=== PATIENT | male | born 1960 | race Caucasian/White ===

== ENCOUNTER → 2022-10-05 | Outpatient (CLI) | payer MEDICAID, SELFPAY ==
--- NOTE | 2022-10-05 17:31 | RAD_ITS ---
STUDY: X-RAY - LUMBAR SPINE REASON FOR EXAM: Male, 62 years old. Lower back pain. History of fall several years ago. TECHNIQUE: 3 view(s) of the lumbar spine were obtained. COMPARISON: None FINDINGS: Normal lumbar lordosis. There is no substantial scoliosis. There is a normal alignment of the vertebrae. There is multilevel endplate spondylosis of the lumbar vertebrae. Normal disc space heights. There is no evidence of acute fracture or loss of vertebral axial height. There is evidence of surgical repair of the right acetabular region. The soft tissue structures are unremarkable. RAD/Lumbar Spine 2 or 3 Views IMPRESSION: Mild degenerative changes of the lumbar spine without acute abnormality. Electronically Signed: Leroy Tavares DO at 22:49 EST ,
--- NOTE | 2022-10-05 17:34 | RAD_ITS ---
STUDY: X-RAY - PELVIS AND RIGHT HIP REASON FOR EXAM: Male, 62 years old. Previous hip surgery. Right hip pain. TECHNIQUE: 3 views of the pelvis and hip. COMPARISON: None. FINDINGS: There is a non-specific bowel gas pattern. Normal visualized soft tissue structures. Normal bilateral iliac wings, sacroiliac joints and visualized sacrum. Normal bilateral superior and inferior pubic rami. Normal pubic symphysis. Normal bilateral ischial tuberosities. Normal visualized right femoral head. There is evidence of remote surgical repair of the right acetabulum. Normal right hip joint. RAD/HIP, UNI W/ Pelvis 2-3 Views IMPRESSION: Evidence of remote surgical repair of the right acetabulum. There is no acute abnormality. Electronically Signed: Leroy Tavares DO at 22:49 EST ,
[2022-10-05 19:20] LABS: Amphetamine Urine VISTA NEGATIVE (<1000 ng/mL); Barbiturate Urine VISTA NEGATIVE (< 200 ng/mL); Benzodiazepine Urine VISTA NEGATIVE (< 200 ng/mL); Cocaine Urine VISTA NEGATIVE (< 300 ng/mL); Ecstacy Urine VISTA NEGATIVE (< 500 ng/mL); Methadone Urine VISTA NEGATIVE (< 300 ng/mL); PCP Urine VISTA NEGATIVE (< 25 ng/mL); THC Urine VISTA POSITIVE (< 50 ng/mL); Vista UDS pH Range 7
== END | disposition home or self-care (01) ==
PROVIDERS: Visit Provider Anesthesiology Pain Medicine
DX: F11.20 Opioid dependence, uncomplicated (principal); M51.36 Other intervertebral disc degeneration, lumbar region; M25.551 Pain in right hip
CPT/HCPCS: 72100; 73502; 80307

== ENCOUNTER 2022-12-10 15:30 | Outpatient (RCR) | payer MEDICAID, SELFPAY ==
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
--- NOTE | 2023-04-27 10:14 | HP.PTDCSUM ---
It has been my pleasure to treat HILARIA HEWITT referred by Dr. Grover Stroud MD, with the diagnosis of BACK PAIN AND LEG PAIN for a total of 9 visit(s). Discharge Date: Please see the following information for a summary of their discharge status. Subjective: Patient doing well with Aquatic. Doing better overall ..walking better Right Back Pain Intensity (Out of 10): 5 Right Hip Pain Intensity (Out of 10): 5 % Improvement: 40 Objective/Function: POSTURE: mild forward posture. GAIT: reciprocal pattern. LUMBAR ROM: flexion min loss ,extension mod/severe ,min loss side glides. MMT: quads 4-/5 ,hip flexion 4-/5 ,ankle 5/5 ,hamstrings 4/5. FLEXABLITY: min loss Goal 1:: I with HEP for Aquatic Therapy program Goal 2:: Patient to demonstrate 50% improvement with improved function and less pain. Goal 3:: Patient improve peak force right leg by 10 to improve function and gait Goal 4:: Patient to improve lumbar ROM for function of recovery to tie shoes Goal 5:: Patient to improve back oswestry score by 5 points to improve function. Plan: RTD If there are questions or concerns regarding this patient's physical therapy, please feel free to call me at [phone]. Thank you for the referral of this patient. Sincerely, Brendon Salvador PT, Cert MDT, OCS Balance/Gait/Functional tests - Balance/Special Test Scores Oswestry Low Back Score: 10
== END 2022-12-10 19:00 | disposition home or self-care (01) ==
LOC: PT 15:30
PROVIDERS: Referring Provider Anesthesiology Pain Medicine; Visit Provider Anesthesiology Pain Medicine
DX: M54.9 Dorsalgia, unspecified (principal); M79.604 Pain in right leg
CPT/HCPCS: 97113; 97162; 97530

== ENCOUNTER → 2025-05-01 | Outpatient (CLI) | payer MEDICARE, MEDICAID, SELFPAY ==
--- NOTE | 2025-05-01 13:20 | RAD_ITS ---
PROCEDURE: HIP, UNI W/ PELVIS 2-3 VIEWS 05/01/2025 REASON FOR EXAM: RIGHT HIP PAIN TECHNIQUE: (3) views of the pelvis and right hip COMPARISON: 10/05/2022. FINDINGS: Unremarkable metallic hardware of the right acetabulum. Mild osteopenia of the visualized bones. Degenerative joint disease. No fracture or dislocation is seen. No lytic or blastic bone lesion is noted. RAD/HIP, UNI W/ Pelvis 2-3 Views IMPRESSION: No radiographic evidence of an acute bone abnormality. Reading [facility]
--- NOTE | 2025-05-01 13:20 | RAD_ITS ---
PROCEDURE: LUMBAR SPINE 2 OR 3 VIEWS 05/01/2025 REASON FOR EXAM: LUMBAR RADICULOPATHY TECHNIQUE: 2 view(s) of the lumbar spine COMPARISON: None. FINDINGS: Mild degenerative levoscoliosis apex at L3.sis apex at L3. There are diffuse spondylotic changes. Findings are demonstrated to by diffuse disc space narrowing, osteophyte formation and degenerative endplate sclerosis. There is diffuse facet joint arthropathy with secondary bilateral neural foramina narrowing. No fracture or dislocation is seen. No aggressive lytic or blastic bony lesion is noted. IMPRESSSPONDYLOSIS. NONE.: Spondylosis. Reading Location: [facility]
[2025-05-01 15:07] LABS: ALB/GLOB Ratio 1.2 RATIO (0.9-2.4); AST(SGOT) 57 U/L (<=37); Alanine Aminotransfer ALT/SGPT 82 U/L (<=46); Albumin, Serum 4.3 g/dL (3.4-4.8); Alkaline Phosphatase 117 U/L (40-129); Anion Gap 11 (5-15); BUN 17 mg/dL (4-19); BUN/Creat Ratio 11.4 RATIO (10-20); Calcium,Total 9.1 mg/dL (7.6-11.0); Carbon Dioxide 23.8 mmol/L (21.0-32.0); Chloride 106 mmol/L (98-108); Creatinine, Serum 1.47 mg/dL (0.70-1.20); EST Glomerular Filtration Rate 52 (>60); Globulin 3.5 g/dL (2.2-4.2); Glucose 111 mg/dL (70-99); Potassium 4.7 mmol/L (3.3-5.1); Protein, Total 7.8 g/dL (5.9-8.4); Sodium Level 140 mmol/L (133-145); Total Bilirubin 0.38 mg/dL (0.00-1.30)
--- OUTSIDE RECORDS SUMMARY | 2025-05-01 23:31 | XMS RPT_ITS | CCD ---
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 Jim Wilson DO Work Phone: [facility] 09-21-2022 10:53-0400 Diastolic blood pressure 88 mm[Hg] Jim Wilson DO Work Phone: [facility] 09-21-2022 10:53-0400 Heart rate 76 /min Jim Wilson [employer] Work Phone: [facility] 09-21-2022 10:53-0400 SaO2% (BldA) [Mass fraction] 95 % Jim Wilson [employer] Work Phone: [facility] 09-21-2022 10:53-0400 Systolic blood pressure 138 mm[Hg] Jim Wilson [employer] Work Phone: [facility] 06-29-2017 06:53-0400 BP Diastolic 80 mm[Hg] Lulu Matty [facility] Work Phone: 06-29-2017 06:53-0400 BP Systolic 130 mm[Hg] [facility] 06-29-2017 06:31-0400 BMI (Body Mass Index) 25.31 kg/m2 [facility]: 06-29-2017 06:31-0400 Body Temperature 97.81 [degF] [facility]: 06-29-2017 06:31-0400 Height 168.3 cm [facility] Work Phone: 06-29-2017 06:31-0400 Pulse (Heart Rate) 71 /min [facility]: 06-29-2017 06:31-0400 Pulse Oximetry 95 % Lulu [facility] Work Phone: 06-29-2017 06:31-0400 Weight 71.[address] [facility] Work Phone: Encounters Encounter Date Encounter Type Care Provider Facility Start: 05-18-2023 ambulatory CHINO~[id number] BERETE MARIANA MAGANA [facility] Start: 03-08-2023 End: 03-08-2023 ambulatory JIM WILSON [facility] Start: 03-08-2023 End: 03-08-2023 Office outpatient visit 25 minutes Jim Wilson DO Work Phone: [facility] [employer] Comment on above: Chronic neck and flora k pain (Primary Dx); Primary insomnia; Adult general medical examination Start: 03-08-2023 End: 03-08-2023 Patient encounter procedure Jim Wilson DO Work Phone: [facility] [employer] Start: 03-08-2023 End: 03-08-2023 Patient encounter status Jim Wilson DO Work Phone: [facility] [employer] Start: 12-10-2022 End: 12-10-2022 ambulatory [facility] Start: 10-05-2022 End: 10-05-2022 Patient encounter procedure [facility] Start: 10-05-2022 End: 10-05-2022 [facility] Work Phone: Start: 09-21-2022 End: 09-21-2022 ambulatory JIM WILSON [facility] Start: 09-21-2022 Encounter for genera l adult medical examination without abnormal findings JIM WILSON [facility] Start: 09-21-2022 End: 09-21-2022 Office outpatient new 45 minutes Jim Wilson DO Work Phone: [facility] Comment on above: Primary hypertension (Primary Dx); Primary insomnia; Erectile dysfunction, unspecified erectile dysfunction type; Chronic neck and back pain Start: 09-21-2022 End: 09-21-2022 Patient encounter procedure Jim Wilson DO Work Phone: [facility] Start: 06-29-2017 End: 06-29-2017 Ambulatory LULU CERDA MATTY [facility] Start: 06-29-2017 Office/outpatient vi sit, est, level 3 Lulu Starr Work Phone: [facility] Start: 04-07-2017 Ambulatory [facility] Procedures Date Procedure Procedure Detail Performing Clinician Start: 03-08-2023 PSA screening JIM WILSON Comment on above: Performed By: #### 1 [id number] #### [facility] [address] [place] [address] Start: 10-05-2022 Plain x-ray of pelvi s and lower extremity Start: 10-05-2022 X-ray of lumbar spin e, two or three views Plan of Treatment Date Care Activity Detail Author Start: 07-23-2023 Influenza vaccination Influenza Vaccine (Season Ended) [facility] Start: 03-08-2023 End: 03-08-2023 Patient encounter procedure 03/08/2023 Office Visit Family Medicine Jim Wilson DO [address] [place] [address] [facility] Start: 2023 Falls Risk Assessment Falls Risk Assessment [facility] Start: 09-21-2022 Hypertension/CHF/CAD Annual BMP Blood Test Hypertension/CHF/CAD Annual BMP Blood Test [facility] Start: 08-10-2022 Abdominal aortic aneurysm screening Abdominal Aortic Aneurysm (AAA) Screen [facility] Start: 08-10-2022 Adolescent depression screening assessment Depression Screening [facility] Start: 08-10-2022 Hepatitis C screening Hepatitis C Screening [facility] Start: 08-10-2022 HIV screening HIV Screening [facility] Start: 08-10-2022 Lipid panel Cholesterol Screening (Lipid Panel) [facility] Start: 08-10-2022 Medicare Annual Wellness Visit Medicare Annual Wellness Visit [facility] Start: 08-10-2022 Screening for malignant neoplasm of colon Colorectal Cancer Screening: Colonoscopy [facility] Start: 08-10-2022 Social Influencers of Health Screening Social Influencers of Health Screening [facility] Start: 07-23-2022 Influenza vaccination Influenza Vaccine (#1) [facility] Start: 02-18-2018 URINE MICROALBUMIN URINE MICROALBUMIN [facility] Work Phone: Start: 08-20-2017 [facility] Start: 07-23-2017 SEQUENTIAL INFLUENZA VACCINE (#1) SEQUENTIAL INFLUENZA VACCINE (#1) [facility] Work Phone: Start: 01-29-2008 Zoster Vaccines (1 of 2) Zoster Vaccines (1 of 2) [facility] Start: 1977 DTaP,Tdap,and Td Vaccines (1 - Tdap) DTaP,Tdap,and Td Vaccines (1 - Tdap) [facility] Start: 01-29-1964 Pneumococcal Vaccine: 65+ Years (1 - PCV) Pneumococcal Vaccine: 65+ Years (1 - PCV) [facility] Start: 01-29-1964 Pneumococcal Vaccine: Pediatrics (0 to 5 Years) and At-Risk Patients (6 to 64 Years) (1 - PCV) Pneumococcal Vaccine: Pediatrics (0 to 5 Years) and At-Risk Patients (6 to 64 Years) (1 - PCV) [facility] Start: 1960 COVID-19 Vaccine (#1) COVID-19 Vaccine (#1) [facility] Start: 1960 Hepatitis B Vaccines (1 of 3 - 3-dose series) Hepatitis B Vaccines (1 of 3 - 3-dose series) [facility] Start: 1960 Colonoscopy COLONOSCOPY [facility] Work Phone: Start: 1960 HEPATITIS C SCREENING HEPATITIS C SCREENING [facility] Work Phone: Start: 1960 TETANUS EVERY 10 YR TETANUS EVERY 10 YR [facility] Work Phone: Comprehensive metabo lic 2000 panel - Serum or Plasma Comprehensive metabolic panel Lab Routine Adult general medical examination 03/08/2023 11:13 AM EDT [facility] Hemoglobin A1c/Hemoglobin.total in Blood Hemoglobin A1c Lab Routine Adult general medical examination 03/08/2023 11:13 AM EDT [facility] Lipid panel with dir ect LDL - Serum or Plasma Lipid panel with reflex to direct LDL Lab Routine Adult general medical examination 03/08/2023 11:13 AM EDT [facility] Work Phone: Prostate specific antigen screen, total and free Prostate specific antigen screen, total and free Lab Routine Adult general medical examination 03/08/2023 11:13 AM EDT [facility] Immunizations Immunization Date Immunization Notes Care Provider Fa [facility] 09-04-2020 influenza virus vacc ine, unspecified formulation Jim Wilson DO Work Phone: [facility] Payers Date Payer Category Payer Medicare MEDICARE MEDICAR E PART A & B [id number] 2023-Present [address] [place] [address] Medicare [id number] 2023 Medicare [id number] 2022 Self-pay 2022 Medicaid [employer] [id number] 2022-Present [address] [place] [address] [id number] 2022 Unknown [id number] 2022 Unknown [id number] 2015 Medicaid [id number] 1958 Unknown [id number] 1958 Unknown [id number] 1958 Unknown [id number] Unknown [id number] Unknown [id number] Social History Date Type Detail Facility Start: 06-29-2017 End: 09-21-2022 Tobacco smoking status NHIS Current every day smoker [employer] Work Phone: Start: 06-29-2017 End: 09-21-2022 Cigarettes smoked current (pack per day) - Reported [employer] Work Phone: Start: 1960 Sex Assigned At Not on file [facility] Phone: History of tobacco use Cigarette Smoker [facility] [employer] Start: 09-21-2022 Tobacco use and exposure Smokeless tobacco non-user [facility] Start: 09-11-2022 End: 03-08-2023 Exposure to SARS-CoV-2 (event) Not sure [facility] Start: 1960 Sex Assigned At Male [facility] History of Present illness Narrative 03-08-2023 Jim Wilson DO - 03/08/2023 10:30 AM EDT Note Date & Type Note Facility 03-08-2023 History of Presen t illness Narrative Patient ID: Hilaria Weinberg 1960 Subjective Chief Complaint Patient presents with Follow-up Pt is here for a 6 month f/u today 03/08/2023 - Family Medicine Office Visit with Jim Wilson DO Mr. Hilaria Weinberg is a 63 y.o. with diagnoses including erectile dysfunction, hypertension, insomnia, multilevel degenerative disc disease who presents for a follow-up. Interval history: Our last visit was our first visit on 09/21/2022. Referred to pain management that visit, did establish with a Dr. Stroud in [place], [place], PDMP review February 2023 shows gabapentin filled September 2022, narcotic filled May 2022, which he is no longer on. No interval ED utilization. Chronic care: #Eretile dysfunction: Sildenafil as needed #Hypertension: on lisinopril #Insomnia: on trazodone #Multilevel degenerative disc disease: Gabapentin plus NSAID spot treatment, PDMP reviewed history per above, Has had a PM&R EMG showing no neuropathy/normal EMG, follows Dr. Matute interventionalist in [place], [place] Care Team: Interventional Pain Management- Dr. Stroud in [place], [place] Ophthalmology-Glaucoma PCP-Jim Wilson DO Surgical history: 2004 - right acetabular fixation in setting of closed fx trochanter of right femur (tree fell on patient), receiving disability Social history: Daughter-Zabrina TINEO-Ana Patel - significant other Preventive: Current smoker - quit 3 years cold turkey then resumed Defers colon cancer screening No results found for: EGFR, [id number], TSH, LDL, PSA Body mass index is 23.65 kg/m . Vitals: 03/08/23 1040 BP: (!) 128/98 Current Outpatient Medications: gabapentin (NEURONTIN) 800 mg tablet, Take 1 tablet (800 mg total) by mouth 3 (three) times a day., Disp: 270 each, Rfl: 1 latanoprost (XALATAN) 0.005 % ophthalmic solution, INSTILL 1 DROP INTO LEFT EYE DAILY AT BEDTIME, Disp: , Rfl: lisinopriL (PRINIVIL,ZESTRIL) 20 mg tablet, Take 1 tablet (20 mg total) by mouth 1 (one) time each day., Disp: 90 each, Rfl: 3 naproxen (NAPROSYN) 500 mg tablet, Take 1 tablet (500 mg total) by mouth 2 (two) times a day with meals. Awareness of ulcer and kidney function risk, Disp: 180 each, Rfl: 3 sildenafiL (VIAGRA) 100 mg tablet, Take 1 tablet daily as needed 1-4h before sexual activity., Disp: 30 tablet, Rfl: 11 traZODone (DESYREL) 50 mg tablet, Take 1 tablet (50 mg total) by mouth at bedtime., Disp: 90 each, Rfl: 3 The following portions of the patient's chart were reviewed in this encounter and updated as appropriate: Tobacco Med Hx Surg Hx Fam Hx Soc Hx Review of Systems Per HPI Objective Physical Exam Exam: Intake vitals including blood pressure, heart rate, pulse oximetry reviewed General: conversant Eyes: normal eye movement Skin: no pallor, rash, excoriation, or jaundice Musculoskeletal: normal motion of all extremities through natural course of visit, able to a stand without difficulty Psych: provides history cohesively Assessment/Plan 1. Chronic neck and back pain stable-state, at goal, continue same dosing, PDMP reviewed February 2023, sedation precautions - gabapentin (NEURONTIN) 800 mg tablet; Take 1 tablet (800 mg total) by mouth 3 (three) times a day. Dispense: 270 each; Refill: 1 2. Primary insomnia stable-state, at goal, continue same dosing - traZODone (DESYREL) 50 mg tablet; Take 1 tablet (50 mg total) by mouth at bedtime. Dispense: 90 each; Refill: 3 3. Adult general medical examination Screening labs - Lipid panel with reflex to direct LDL - Comprehensive metabolic panel - Prostate specific antigen screen, total and free - Hemoglobin A1c Followup recommendations: Follow up in about 6 months (around 09/07/2023) for video visit. Two or more stable chronic conditions with prescription management-[id number] documented in this encounter [facility] History of Present illness Narrative 09-21-2022 Jim Wilson DO - 09/21/2022 10:40 AM EDT Note Date & Type Note Facility 09-21-2022 History of Presen t illness Narrative Patient ID: Hilaria Weinberg 1960 Subjective Chief Complaint Patient presents with Annual Exam Pt is here for a physical today , pt having some issues with screws in his back that are causing his right ankle to swell Hilaria Weinberg is a 62 y.o. male with history of hypertension, ED, insomnia, chronic neck and back pain on chronic narcotics prior to establishing, current smoker who presents to establish care. Prior PCP in new patient: Seen November 2021 Dr. Corral has retired and Laz has moved practices, the practice she has moved to does not take their insurance. PDMP review in new patient: Gabapentin 800 mg TID #90 Hydrocodone acetaminophen 10-325 #40 Patient has been prescribed this medication by prior PCP consistently through the entirety of 2 year lookback HPI: Per CC: Asks about refills for chronic care as well as what comes down to, essentially, a long-term approach to chronic pain Chronic care: HTN: Lisinopril Chronic neck and back pain: Gabapentin plus NSAID, PDMP reviewed history per above Has had a PM&R EMG showing no neuropathy/normal EMG XR 2018 shows mild DDD lumbar ED: Sildenafil Insomnia: Trazodone Care Team/ED utilization/admissions: Glaucoma -ophthalmology PCP Historical: PM&R, normal 2018 EMG, Physical therapy with Ortho sports medicine Consideration for medial branch block and radiofrequency ablation through [facility], lost to followup. Surgical history: 2004 - right acetabular fixation in setting of closed fx trochanter of right femur (tree fell on patient), receiving disability Preventive: Current smoker - quit 3 years cold turkey then resumed Defers colon cancer screening 146lb BP: 138/88 Social history: Zabrina Mcgowan - Daughter Ana Patel - significant other The following portions of the patient's chart were reviewed in this encounter and updated as appropriate: Tobacco Allergies Meds Problems Med Hx Surg Hx Fam Hx Soc Hx Review of Systems Per HPI Objective Physical Exam Vitals reviewed. Constitutional: General: He is not in acute distress. Appearance: Normal appearance. He is not ill-appearing or diaphoretic. HENT: Head: Normocephalic and atraumatic. Eyes: Extraocular Movements: Extraocular movements intact. Cardiovascular: Rate and Rhythm: Normal rate. Pulmonary: Effort: Pulmonary effort is normal. No respiratory distress. Skin: Coloration: Skin is not jaundiced or pale. Findings: No bruising. Neurological: General: No focal deficit present. Mental Status: He is alert. Mental status is at baseline. Psychiatric: Mood and Affect: Mood normal. Behavior: Behavior normal. Assessment/Plan Primary hypertension (Primary) (Chronic) Comments: stable, normotensive, continue acei Orders: - lisinopriL (PRINIVIL,ZESTRIL) 20 mg tablet; Take 1 tablet (20 mg total) by mouth 1 (one) time each day. Dispense: 90 each; Refill: 3 Primary insomnia (Chronic) Comments: stable, watch for sedation given concommitant gabapentin Orders: - traZODone (DESYREL) 50 mg tablet; Take 1 tablet (50 mg total) by mouth at bedtime. Dispense: 90 each; Refill: 3 Erectile dysfunction, unspecified erectile dysfunction type (Chronic) Comments: stable, continue sildenafil empirically Orders: - sildenafiL (VIAGRA) 100 mg tablet; Take 1 tablet daily as needed 1-4h before sexual activity. Dispense: 30 tablet; Refill: 11 Chronic neck and back pain (Chronic) Comments: referral drafted, emphasis on nonnarcotic and interdisciplinary approach to pain, injury mitigation, nsaid stewardship discussed Orders: - naproxen (NAPROSYN) 500 mg tablet; Take 1 tablet (500 mg total) by mouth 2 (two) times a day with meals. Awareness of ulcer and kidney function risk Dispense: 180 each; Refill: 3 - gabapentin (NEURONTIN) 800 mg tablet; Take 1 tablet (800 mg total) by mouth 3 (three) times a day. Dispense: 270 each; Refill: 1 - Ambulatory referral to Pain Medicine; Future Chart recommendations: I am referring him to pain medicine NSAID stewardship The patient's pain symptoms are controlled with gabapentin and judicious use of NSAIDs plus Tylenol along with home physical therapy I would not recommend he be on a narcotic He may find that his symptoms are better with something like a muscle relaxer however sedation risks/polypharmacy is a concern Followup recommendations: Semi-annual follow-up plus sooner as needed [id number] based on 45 minutes in total day-of time in history taking, exam, MDM, counseling and care coordination in new patient. documented in this encounter [facility] Evaluation note Note Date & Type Note Facility Evaluation note Diagnosis Primary hypertension- Primary Unspecified essential hypertension Primary insomnia Persistent disorder of initiating or maintaining sleep Erectile dysfunction, unspecified erectile dysfunction type Chronic neck and back pain documented in this encounter [facility] Evaluation note Note Date & Type Note Facility Evaluation note No assessment information availa [facility] Work Phone: Evaluation note Note Date & Type Note Facility Evaluation note Diagnosis Chronic neck and back pain- Primary Primary insomnia Persistent disorder of initiating or maintaining sleep Adult general medical examination Unspecified general medical examination documented in this encounter [facility] Reason for referral (narrative) Consultation (Routine) - Authorized Note Date & Type Note Facility Reason for referral (narrati ve) Specialty Diagnoses / Procedures Referred By Eduardo perez Referred To Contact Pain Medicine Diagnoses Chronic neck and back pain Jim Wilson DO [address] [place] [address] Referral ID Status Reason Start Date Expiration Date Visits Requested Visits Authorized [id number] Authorized Specialty Services Required 2 03/20/2023 1 1 [facility] Assessments Diagnosis Pre-operative examination - Primary Unspecified pre-operative examination Pre-op evaluation Pigmentary glaucoma of right eye, severe stage Essential hypertension Unspecified essential hypertension Chronic kidney disease, stag e 3 (moderate) Summary Purpose Family History No Family History Records FoundNo Family History Records FoundNo Family History Records FoundNo Family History Records Found Advance Directives No Advanced Directives Records FoundNo Advanced Directives Records FoundNo Advanced Directives Records FoundNo Advanced Directives Records Found Additional Source Comments (unrecognized sect ion and content) No Status Records FoundNo Status Records FoundNo Status Records FoundNo Status Records Found INFORMATION SOURCE (unrecogn ized section and content) DATE CREATED AUTHOR 05/11/2018 [facility] DATE CREATED AUTHOR AUTHOR'S ORGANIZ ATION 05/18/[address] [facility] DATE CREATED AUTHOR AUTHOR'S ORGANIZ ATION 05/02/2023 [facility] DATE CREATED AUTHOR AUTHOR'S ORGANIZ ATION 05/18/2023 [facility] Reason for Visit (unrecogniz ed section and content) Reason Comments Annual Exam Pt is here for a phy sical today , pt having some issues with screws in his back that are causing his right ankle to swell Reason Comments Follow-up Pt is here for a 6 m onth f/u today Ordered Prescriptions (unrec ognized section and content) Prescription Sig Dispensed Refills Start Date End Da te gabapentin (NEURONTIN) 800 mg tabletIndications:Chron ic neck and back pain Take 1 tablet (800 mg total) by mouth 3 (three) times a day. 270 each 1 09/21/2022 03/20/2023 naproxen (NAPROSYN) 500 mg tabletIndications:Chron ic neck and back pain Take 1 tablet (500 mg total) by mouth 2 (two) times a day with meals. Awareness of ulcer and kidney function risk 180 each 3 09/21/2022 09/21/2023 lisinopriL (PRINIVIL,ZESTRIL) 20 mg tabletIndications:Prima ry hypertension Take 1 tablet (20 mg total) by mouth 1 (one) time each day. 90 each 3 09/21/2022 09/21/2023 sildenafiL (VIAGRA) 100 mg tabletIndications:Erect ile dysfunction, unspecified erectile dysfunction type Take 1 tablet daily as needed 1-4h before sexual activity. 30 tablet 11 09/21/2022 traZODone (DESYREL) 50 mg tabletIndications:Prima ry insomnia Take 1 tablet (50 mg total) by mouth at bedtime. 90 each 3 09/21/2022 09/21/2023 Prescription Sig Dispensed Refills Start Date End Da te traZODone (DESYREL) 50 mg tabletIndications:Primary insomnia Take 1 tablet (50 mg total) by mouth at bedtime. 90 each 3 03/08/2023 03/07/2024 gabapentin (NEURONTIN) 800 mg tabletIndications:Chronic neck and back pain Take 1 tablet (800 mg total) by mouth 3 (three) times a day. 270 each 1 03/08/2023 09/04/2023 Care Teams (unrecognized sec tion and content) Human Services Case Manager Relationship Specialty Start Date End Date Jim Wilson DO [address] [place] [address] PCP - General Family Medicine 09/10/22 Human Services Case Manager Relationship Specialty Start Date End Date Jim Wilson DO [address] [place] [address] PCP - General Family Medicine 09/10/22 Goals (unrecognized section and content) Goals may be documented in a n alternate sectionGoals may be documented in an alternate section FOR RECORDS PERTAINING TO PATIENTS WHO ARE OR HAVE BEEN ENROLLED IN A CHEMICAL DEPENDENCY/SUBSTANCEABUSE PROGRAM, SOME INFORMATION MAY BE OMITTED. This clinical summary was aggregated from multiple sources. Caution should be exercised in using it in the provision of clinical care. This summary normalizes information from multiple sources, and as a consequence, information in this document may materially change the coding, format and clinical context of patient data. In addition, data may be omitted in some cases. CLINICAL DECISIONS SHOULD BE BASED ON THE PRIMARY CLINICAL RECORDS. [facility]. provides no warranty or guarantee of the accuracy or completeness of information in this document.
== END | disposition home or self-care (01) ==
LOC: LAB 13:07 → RAD 13:15
PROVIDERS: Referring Provider Anesthesiology; Visit Provider Anesthesiology
DX: M54.16 Radiculopathy, lumbar region (principal); M47.816 Spondylosis without myelopathy or radiculopathy, lumbar region; M16.11 Unilateral primary osteoarthritis, right hip; M85.88 Other specified disorders of bone density and structure, other site
CPT/HCPCS: 36415; 72100; 73502; 80053